=== PATIENT | male | born 1970 | race African-American/Black ===

== ENCOUNTER 2021-12-23 14:39 | Inpatient (IN) | payer OTHER ==
[2021-12-23 15:35] VITALS: BMI 18.9
[2021-12-23] MEDS ORDERED: P-EPHED 60MG/TRIPROLIDI 2.5MG TABLET PO PRN (20:52)
[2021-12-23] MEDS ORDERED: ACETAMINOPHEN 325 MG TABLET (FP) PO PRN (20:52)
[2021-12-23] MEDS ORDERED: MAGNESIUM CITRATE 300 ML BOTTLE PO PRN (20:52)
[2021-12-23] MEDS ORDERED: IBUPROFEN 400 MG TABLET (FP) PO PRN (20:52)
[2021-12-23] MEDS ORDERED: LOPERAMIDE HCL 2 MG CAPSULE PO PRN (20:52)
[2021-12-23] MEDS ORDERED: MAGNESIUM HYDROX 2400MG/30ML ORAL SUSPENSION 30 ML CUP PO PRN (20:52)
[2021-12-23] MEDS ORDERED: MAG HYDROX/AL HYDROX/SIMETH 30 ML UNIT-DOSE CUP PO PRN (20:52)
[2021-12-23] MEDS ORDERED: hydrOXYzine PAMOATE 25 MG CAPSULE (FP) PO PRN (20:52)
[2021-12-23] MEDS: THIAMINE HCL 100 MG TABLET (FP) PO SCH (21:24)
[2021-12-23] MEDS: levETIRAcetam 500 MG TABLET (FP) PO SCH (21:24)
[2021-12-23] MEDS: MELATONIN 5 MG TABLETS PO PRN (21:24)
[2021-12-23 22:07] VITALS: PULSE 64
[2021-12-24 09:30] LABS: HEMATOCRIT 41.7 % (35.4-49); HEMOGLOBIN 14.2 GM/dL (11.7-16.9); MCH 33.9 pg (25.7-33.7); MEAN CELL VOLUME 99.7 fl (80-96); MEAN PLT VOLUME 7.4 fl (7.5-11.1); PLATELET COUNT 176 10^3/uL (134-434); RBC 4.19 M/mm3 (4.00-5.60); RDW 13.3 % (11.9-15.9); WHITE BLOOD COUNT 6.8 K/mm3 (4.0-10.0)
[2021-12-24] MEDS ORDERED: PRENATAL VITAMINS W/ FOLIC ACID TABLET (FP) PO SCH (10:00)
[2021-12-24 10:22] LABS: CALCIUM 8.6 mg/dL (8.5-10.1)
[2021-12-24 10:23] LABS: ALBUMIN 3.3 g/dl (3.4-5.0)
[2021-12-24 10:25] LABS: BLOOD UREA NITROGEN 7.9 mg/dL (7-18); CREATININE 0.9 mg/dL (0.55-1.3)
[2021-12-24 10:27] LABS: TOT PROT 5.8 g/dl (6.4-8.2)
[2021-12-24] MEDS: levETIRAcetam 500 MG TABLET (FP) PO SCH ×2 (10:47→21:09)
[2021-12-24 10:50] LABS: BILIRUBIN,TOTAL 0.3 mg/dL (0.2-1)
[2021-12-24] MEDS: guaiFENesin 200 MG/10 ML 10 ML UNIT-DOSE CUPS PO PRN (16:36)
[2021-12-24] MEDS: MELATONIN 5 MG TABLETS PO PRN (21:08)
[2021-12-24] MEDS: THIAMINE HCL 100 MG TABLET (FP) PO SCH (21:08)
[2021-12-24] MEDS ORDERED: DIVALPROEX SODIUM 500 MG TABLET E.C. PO SCH (22:00)
[2021-12-24] MEDS ORDERED: DIVALPROEX NA *ER* EXTEND REL 500 MG TABLET.SA (FP) PO SCH (22:00)
[2021-12-24 23:43] LABS: PH,URINE 6.5 (5.0-8.0); URINE APPEARANCE CLEAR; URINE BILIRUBIN NEGATIVE (NEGATIVE); URINE COLOR YELLOW; URINE GLUCOSE (UA) NEGATIVE (NEGATIVE); URINE KETONE NEGATIVE (NEGATIVE); URINE LEUK ESTERASE NEGATIVE (NEGATIVE); URINE NITRITE NEGATIVE (NEGATIVE); URINE PROTEIN NEGATIVE (NEGATIVE); URINE UROBILINOGEN 0.2 mg/dL (0.2-1.0)
[2021-12-25] MEDS: guaiFENesin 200 MG/10 ML 10 ML UNIT-DOSE CUPS PO PRN (07:30)
[2021-12-25 07:34] VITALS: BP 108/69; TEMP 98.8
== END 2021-12-25 09:12 | disposition home or self-care (01) | DRG 772 ==
LOC: YASAS 14:39 → Y3W 19:27
PROVIDERS: ADMIT Allergy & Immunology; ATTEND Allergy & Immunology
PROC: HZ42ZZZ Group Counseling for Substance Abuse Treatment, Cognitive-Behavioral (ICD-10-PCS; principal; 2021-12-23)
DX: F10.20 Alcohol dependence, uncomplicated (principal); F14.20 Cocaine dependence, uncomplicated; F12.20 Cannabis dependence, uncomplicated; F17.210 Nicotine dependence, cigarettes, uncomplicated; F31.9 Bipolar disorder, unspecified; F20.9 Schizophrenia, unspecified; F19.24 Other psychoactive substance dependence with psychoactive substance-induced mood disorder; Z86.69 Personal history of other diseases of the nervous system and sense organs; Z91.018 Allergy to other foods
CPT/HCPCS: 36415; 80053; 80164; 81003; 85027; 86780; 87811; C9803; U0003; U0005

== ENCOUNTER 2022-10-14 11:47 | Inpatient (IN) | payer OTHER ==
[2022-10-14 13:29] VITALS: BMI 17.3
[2022-10-14] MEDS ORDERED: IBUPROFEN 400 MG TABLET (FP) PO PRN (13:40)
[2022-10-14] MEDS ORDERED: P-EPHED 60MG/TRIPROLIDI 2.5MG TABLET PO PRN (13:40)
[2022-10-14] MEDS ORDERED: MAGNESIUM CITRATE 300 ML BOTTLE PO PRN (13:40)
[2022-10-14] MEDS ORDERED: ACETAMINOPHEN 325 MG TABLET (FP) PO PRN (13:40)
[2022-10-14] MEDS ORDERED: guaiFENesin 200 MG/10 ML 10 ML UNIT-DOSE CUPS PO PRN (13:40)
[2022-10-14] MEDS ORDERED: MAGNESIUM HYDROX 2400MG/30ML ORAL SUSPENSION 30 ML CUP PO PRN (13:40)
[2022-10-14] MEDS ORDERED: LOPERAMIDE HCL 2 MG CAPSULE PO PRN (13:40)
[2022-10-14] MEDS ORDERED: MAG HYDROX/AL HYDROX/SIMETH 30 ML UNIT-DOSE CUP PO PRN (13:40)
[2022-10-14] MEDS ORDERED: hydrOXYzine PAMOATE 25 MG CAPSULE (FP) PO PRN (13:40)
[2022-10-14 18:44] LABS: HEMATOCRIT 40.1 % (35.4-49); HEMOGLOBIN 13.3 GM/dL (11.7-16.9); MCH 33.1 pg (25.7-33.7); MCHC 33.3 g/dl (32.0-35.9); MEAN CELL VOLUME 99.6 fl (80-96); MEAN PLT VOLUME 7.6 fl (7.5-11.1); PLATELET COUNT 323 10^3/uL (134-434); RBC 4.02 M/mm3 (4.00-5.60); RDW 12.6 % (11.9-15.9); WHITE BLOOD COUNT 6.7 K/mm3 (4.0-10.0)
[2022-10-14 18:46] LABS: ALBUMIN 3.3 g/dl (3.4-5.0); BLOOD UREA NITROGEN 7.1 mg/dL (7-18); CALCIUM 8.8 mg/dL (8.5-10.1)
[2022-10-14 18:49] LABS: CREATININE 0.9 mg/dL (0.55-1.3)
[2022-10-14 18:51] LABS: BILIRUBIN,TOTAL 0.7 mg/dL (0.2-1); TOT PROT 6.3 g/dl (6.4-8.2)
[2022-10-14 19:06] LABS: SYPHILIS W/ RPR CONF NON-REACTIVE (NONREACTIVE)
[2022-10-14] MEDS ORDERED: TUBERCULIN PPD 5 TU/0.1ML VIAL ID ONE (19:25)
[2022-10-14] MEDS: NICOTINE 7 MG/24 HOURS TOPICAL PATCH TD SCH (19:36)
[2022-10-14] MEDS: PRENATAL VITAMINS W/ FOLIC ACID TABLET (FP) PO SCH (19:36)
[2022-10-14] MEDS: THIAMINE HCL 100 MG TABLET (FP) PO SCH (21:24)
[2022-10-14] MEDS: MELATONIN 5 MG TABLETS PO SCH (21:24)
[2022-10-15] MEDS: PRENATAL VITAMINS W/ FOLIC ACID TABLET (FP) PO SCH (09:23)
[2022-10-15] MEDS: NICOTINE 7 MG/24 HOURS TOPICAL PATCH TD SCH (09:24)
[2022-10-15] MEDS: NICOTINE 10 MG CARTRIDGE (INHALER) IH PRN (09:43)
[2022-10-15] MEDS: DIVALPROEX NA *ER* EXTEND REL 500 MG TABLET.SA (FP) PO SCH ×2 (09:43→21:05)
[2022-10-15] MEDS: FOLIC ACID 1 MG TABLET (FP) PO SCH (13:11)
[2022-10-15] MEDS: CYANOCOBALAMIN 1,000 MCG TABLET (FP) PO SCH (13:11)
[2022-10-15] MEDS: NALTREXONE HCL 50 MG TABLET PO SCH (13:11)
[2022-10-15] MEDS: levETIRAcetam 250 MG TABLET PO SCH ×2 (13:51→22:51)
[2022-10-15] MEDS ORDERED: FLU VACC QS2022-23(6MOS UP)/PF 60 MCG/0.5 ML SYRINGE IM ONE (16:00)
[2022-10-15] MEDS: BENZTROPINE MESYLATE 1 MG TABLET PO SCH (21:05)
[2022-10-15] MEDS: THIAMINE HCL 100 MG TABLET (FP) PO SCH (21:06)
[2022-10-15] MEDS: risperiDONE 1 MG TABLET PO SCH (21:06)
[2022-10-15] MEDS: MELATONIN 5 MG TABLETS PO SCH (21:07)
[2022-10-16] MEDS: NALTREXONE HCL 50 MG TABLET PO SCH (09:46)
[2022-10-16] MEDS: CYANOCOBALAMIN 1,000 MCG TABLET (FP) PO SCH (09:46)
[2022-10-16] MEDS: FOLIC ACID 1 MG TABLET (FP) PO SCH (09:46)
[2022-10-16] MEDS: DIVALPROEX NA *ER* EXTEND REL 500 MG TABLET.SA (FP) PO SCH ×2 (09:46→21:06)
[2022-10-16] MEDS: levETIRAcetam 250 MG TABLET PO SCH ×2 (09:47→21:04)
[2022-10-16] MEDS: NICOTINE 7 MG/24 HOURS TOPICAL PATCH TD SCH (09:47)
[2022-10-16] MEDS: PRENATAL VITAMINS W/ FOLIC ACID TABLET (FP) PO SCH (09:47)
[2022-10-16] MEDS: NICOTINE 10 MG CARTRIDGE (INHALER) IH PRN (15:24)
[2022-10-16] MEDS: THIAMINE HCL 100 MG TABLET (FP) PO SCH (21:05)
[2022-10-16] MEDS: BENZTROPINE MESYLATE 1 MG TABLET PO SCH (21:05)
[2022-10-16] MEDS: risperiDONE 1 MG TABLET PO SCH (21:05)
[2022-10-16] MEDS: MELATONIN 5 MG TABLETS PO SCH (21:06)
[2022-10-16 23:21] LABS: PH,URINE 8.5 (5.0-8.0); URINE APPEARANCE CLEAR; URINE BILIRUBIN NEGATIVE (NEGATIVE); URINE COLOR YELLOW; URINE GLUCOSE (UA) NEGATIVE (NEGATIVE); URINE KETONE NEGATIVE (NEGATIVE); URINE LEUK ESTERASE NEGATIVE (NEGATIVE); URINE NITRITE NEGATIVE (NEGATIVE); URINE PROTEIN NEGATIVE (NEGATIVE); URINE UROBILINOGEN 0.2 mg/dL (0.2-1.0)
[2022-10-17] MEDS: PRENATAL VITAMINS W/ FOLIC ACID TABLET (FP) PO SCH (09:47)
[2022-10-17] MEDS: FOLIC ACID 1 MG TABLET (FP) PO SCH (09:47)
[2022-10-17] MEDS: NALTREXONE HCL 50 MG TABLET PO SCH (09:47)
[2022-10-17] MEDS: DIVALPROEX NA *ER* EXTEND REL 500 MG TABLET.SA (FP) PO SCH ×2 (09:47→21:14)
[2022-10-17] MEDS: levETIRAcetam 250 MG TABLET PO SCH ×2 (09:47→21:14)
[2022-10-17] MEDS: CYANOCOBALAMIN 1,000 MCG TABLET (FP) PO SCH (09:48)
[2022-10-17] MEDS: NICOTINE 7 MG/24 HOURS TOPICAL PATCH TD SCH (09:48)
[2022-10-17] MEDS: BACITRACIN ZINC 15 GM TUBE TOPICAL OINTMENT TP SCH (10:19)
[2022-10-17] MEDS ORDERED: NICOTINE 7 MG/24 HOURS TOPICAL PATCH TD PRN (12:11)
[2022-10-17] MEDS ORDERED: NICOTINE POLACRILEX 2 MG GUM BUC PRN (15:14)
[2022-10-17] MEDS: BENZTROPINE MESYLATE 1 MG TABLET PO SCH (21:14)
[2022-10-17] MEDS: THIAMINE HCL 100 MG TABLET (FP) PO SCH (21:14)
[2022-10-17] MEDS: MELATONIN 5 MG TABLETS PO SCH (21:14)
[2022-10-17] MEDS: risperiDONE 1 MG TABLET PO SCH (21:15)
[2022-10-18 07:27] VITALS: RESP 16; TEMP 97.4
[2022-10-18] MEDS: levETIRAcetam 250 MG TABLET PO SCH ×2 (10:27→21:14)
[2022-10-18] MEDS: CYANOCOBALAMIN 1,000 MCG TABLET (FP) PO SCH (10:28)
[2022-10-18] MEDS: DIVALPROEX NA *ER* EXTEND REL 500 MG TABLET.SA (FP) PO SCH ×2 (10:28→21:15)
[2022-10-18] MEDS: FOLIC ACID 1 MG TABLET (FP) PO SCH (10:28)
[2022-10-18] MEDS: NALTREXONE HCL 50 MG TABLET PO SCH (10:28)
[2022-10-18] MEDS: PRENATAL VITAMINS W/ FOLIC ACID TABLET (FP) PO SCH (10:28)
[2022-10-18] MEDS: BACITRACIN ZINC 15 GM TUBE TOPICAL OINTMENT TP SCH (10:29)
[2022-10-18] MEDS: MELATONIN 5 MG TABLETS PO SCH (21:14)
[2022-10-18] MEDS: risperiDONE 1 MG TABLET PO SCH (21:14)
[2022-10-18] MEDS: THIAMINE HCL 100 MG TABLET (FP) PO SCH (21:14)
[2022-10-18] MEDS: BENZTROPINE MESYLATE 1 MG TABLET PO SCH (21:15)
[2022-10-19 09:05] VITALS: BP 114/70; PULSE 75
[2022-10-19] MEDS: DIVALPROEX NA *ER* EXTEND REL 500 MG TABLET.SA (FP) PO SCH (09:54)
[2022-10-19] MEDS: FOLIC ACID 1 MG TABLET (FP) PO SCH (09:54)
[2022-10-19] MEDS: levETIRAcetam 250 MG TABLET PO SCH (09:54)
[2022-10-19] MEDS: CYANOCOBALAMIN 1,000 MCG TABLET (FP) PO SCH (09:54)
[2022-10-19] MEDS: NALTREXONE HCL 50 MG TABLET PO SCH (09:54)
[2022-10-19] MEDS: BACITRACIN ZINC 15 GM TUBE TOPICAL OINTMENT TP SCH (09:55)
[2022-10-19] MEDS: PRENATAL VITAMINS W/ FOLIC ACID TABLET (FP) PO SCH (09:55)
== END 2022-10-19 14:26 | disposition home or self-care (01) | DRG 772 ==
LOC: YASAS 11:47 → Y3E 18:29
PROVIDERS: ADMIT Allergy & Immunology; ATTEND Surgery
PROC: HZ42ZZZ Group Counseling for Substance Abuse Treatment, Cognitive-Behavioral (ICD-10-PCS; principal; 2022-10-14)
DX: F14.20 Cocaine dependence, uncomplicated (principal); F10.20 Alcohol dependence, uncomplicated; F12.20 Cannabis dependence, uncomplicated; F17.210 Nicotine dependence, cigarettes, uncomplicated; F31.9 Bipolar disorder, unspecified; F20.9 Schizophrenia, unspecified; F19.24 Other psychoactive substance dependence with psychoactive substance-induced mood disorder; G40.909 Epilepsy, unspecified, not intractable, without status epilepticus; K40.90 Unilateral inguinal hernia, without obstruction or gangrene, not specified as recurrent
CPT/HCPCS: 36415; 80053; 81003; 85027; 86780; 86803; C9803-CS; G0008; Q2036; U0003; U0005